=== PATIENT | female | born 1945 | race Caucasian/White ===

== ENCOUNTER → 2023-07-09 11:19 | Outpatient (REF) | payer MEDICARE, OTHER, SELFPAY ==
[2023-07-09 11:44] LABS: Hematocrit 29.2 % (37.0-47.0); Hemoglobin 7.9 g/dL (12.0-16.0); Mean Corp Hgb Conc. 27.1 g/dL (33.0-37.0); Mean Corpuscular Hgb 17.2 pg (27.0-31.0); Mean Corpuscular Volume 63.5 fL (81.0-99.0); Mean Platelet Volume 10.2 fL (7.4-10.4); Platelet Count 391 10^3/uL (130-400); Red Cell Dist. Width 20.9 % (11.5-14.5); White Blood Cell Count 10.3 10^3/uL (4.8-10.8)
== END ==
LOC: OLABN 11:19
PROVIDERS: ATTENDING PHYSICIAN Student in an Organized Health Care Education/Training Program
DX: D64.9 Anemia, unspecified (principal)
CPT/HCPCS: 36415; 85027

== ENCOUNTER → 2023-07-29 11:51 | Outpatient (REF) | payer MEDICARE, OTHER, SELFPAY ==
[2023-07-29 13:17] LABS: Hematocrit 31.5 % (37.0-47.0); Hemoglobin 8.8 g/dL (12.0-16.0); Mean Corp Hgb Conc. 27.9 g/dL (33.0-37.0); Mean Corpuscular Hgb 17.7 pg (27.0-31.0); Mean Corpuscular Volume 63.4 fL (81.0-99.0); Red Blood Cell Count 4.97 10^6/uL (4.20-5.40); Red Cell Dist. Width 23.9 % (11.5-14.5); White Blood Cell Count 8.8 10^3/uL (4.8-10.8)
[2023-07-29 14:12] LABS: Iron 43 ug/dl (37-170)
[2023-07-29 14:48] LABS: Ferritin 10.5 ng/ml (11.1-264.0)
[2023-07-29 15:03] LABS: Vitamin B12 707 pg/ml (239-931)
== END ==
LOC: OLABN 11:51
PROVIDERS: ATTENDING PHYSICIAN Student in an Organized Health Care Education/Training Program
DX: D64.9 Anemia, unspecified (principal); D51.9 Vitamin B12 deficiency anemia, unspecified
CPT/HCPCS: 36415; 82607; 82728; 83540; 85027

== ENCOUNTER → 2023-08-28 12:00 | Outpatient (REF) | payer MEDICARE, OTHER, SELFPAY ==
[2023-08-28 12:36] LABS: Hematocrit 32.3 % (37.0-47.0); Mean Corp Hgb Conc. 27.9 g/dL (33.0-37.0); Mean Corpuscular Hgb 20.4 pg (27.0-31.0); Mean Corpuscular Volume 73.2 fL (81.0-99.0); Mean Platelet Volume 10.5 fL (7.4-10.4); Platelet Count 406 10^3/uL (130-400); Red Blood Cell Count 4.41 10^6/uL (4.20-5.40); Red Cell Dist. Width 25.1 % (11.5-14.5)
== END ==
LOC: OLABN 12:00
PROVIDERS: ATTENDING PHYSICIAN Student in an Organized Health Care Education/Training Program
DX: D64.9 Anemia, unspecified (principal)
CPT/HCPCS: 36415; 85027

== ENCOUNTER → 2023-12-31 11:06 | Outpatient (REF) | payer MEDICARE, OTHER, SELFPAY ==
[2023-12-31 13:38] LABS: Hemoglobin 12.1 g/dL (12.0-16.0); Mean Corp Hgb Conc. 30.3 g/dL (33.0-37.0); Mean Corpuscular Hgb 22.7 pg (27.0-31.0); Mean Platelet Volume 11.2 fL (7.4-10.4); Platelet Count 269 10^3/uL (130-400); Red Blood Cell Count 5.33 10^6/uL (4.20-5.40); Red Cell Dist. Width 16.7 % (11.5-14.5)
[2023-12-31 13:51] LABS: Blood Urea Nitrogen 25 mg/dl (7-17); Calcium 10.4 mg/dl (8.4-10.2); Carbon Dioxide 27 mmol/L (22-30); Chloride 102 mmol/L (98-107); Glucose 91 mg/dl (70-99); Potassium 4.5 mmol/L (3.5-5.1); Sodium 139 mmol/L (135-145); eGFR > 60.00
== END ==
LOC: OLABN 11:06
PROVIDERS: ATTENDING PHYSICIAN Student in an Organized Health Care Education/Training Program
DX: Z85.3 Personal history of malignant neoplasm of breast (principal)
CPT/HCPCS: 36415; 80048; 85027

== ENCOUNTER → 2024-08-10 12:44 | Outpatient (REF) | payer MEDICARE, OTHER, SELFPAY ==
[2024-08-10 13:21] LABS: % Basophils 0.8 % (0-2); % Eosinophils 2.5 % (0-6); % Immature Granulocytes 0.4 % (0-0.5); % Lymphocytes 26.1 % (20.5-51.1); % Monocytes 7.9 % (1.7-9.3); % Neutrophils 62.3 % (42.2-75.2); Absolute Basophils 0.1 10^3/uL (0-0.2); Absolute Eosinophils 0.2 10^3/uL (0-0.7); Absolute Lymphocytes 1.9 10^3/uL (1.2-3.4); Absolute Monocytes 0.6 10^3/uL (0.1-0.6); Absolute Neutrophils 4.6 10^3/uL (1.4-6.5); Hematocrit 39.8 % (37.0-47.0); Hemoglobin 10.9 g/dL (12.0-16.0); Mean Corp Hgb Conc. 27.4 g/dL (33.0-37.0); Mean Corpuscular Hgb 20.2 pg (27.0-31.0); Mean Corpuscular Volume 73.7 fL (81.0-99.0); Nucleated Red Blood Cells % 0 %; Platelet Count 300 10^3/uL (130-400); Red Cell Dist. Width 23.5 % (11.5-14.5); White Blood Cell Count 7.3 10^3/uL (4.8-10.8)
[2024-08-10 13:45] LABS: Iron 31 ug/dl (37-170)
[2024-08-10 13:55] LABS: Percent Saturation 7 % (20-50); Total Iron Binding Capacity 389 ug/dl (265-497)
[2024-08-10 14:35] LABS: Anisocytosis 1+; Hypochromasia 1+; Normal RBC Morphology No; Ovalocytes 1+; Polychromasia 1+
[2024-08-10 14:36] LABS: Acanthocytes FEW
== END ==
LOC: OLABN 12:44
PROVIDERS: ATTENDING PHYSICIAN Student in an Organized Health Care Education/Training Program
DX: D50.9 Iron deficiency anemia, unspecified (principal)
CPT/HCPCS: 36415; 83540; 83550; 85025

== ENCOUNTER → 2024-12-29 11:51 | Outpatient (REF) | payer MEDICARE, OTHER, SELFPAY ==
[2024-12-29 14:23] LABS: Blood Urea Nitrogen 21 mg/dl (7-17); Calcium 9.1 mg/dl (8.4-10.2); Carbon Dioxide 27 mmol/L (22-30); Chloride 104 mmol/L (98-107); Glucose 98 mg/dl (70-99); Potassium 4.6 mmol/L (3.5-5.1); Sodium 137 mmol/L (135-145); eGFR > 60.00
== END ==
LOC: OLABN 11:51
PROVIDERS: ATTENDING PHYSICIAN Student in an Organized Health Care Education/Training Program
DX: Z85.3 Personal history of malignant neoplasm of breast (principal)
CPT/HCPCS: 36415; 80048

== ENCOUNTER → 2025-02-08 11:41 | Outpatient (REF) | payer MEDICARE, OTHER, SELFPAY ==
[2025-02-08 13:20] LABS: Hematocrit 27.3 % (37.0-47.0); Hemoglobin 7.2 g/dL (12.0-16.0); Mean Corp Hgb Conc. 26.4 g/dL (33.0-37.0); Mean Corpuscular Volume 63.5 fL (81.0-99.0); Nucleated Red Blood Cells % 0 %; Platelet Count 418 10^3/uL (130-400); Red Cell Dist. Width 18.3 % (11.5-14.5)
[2025-02-08 13:21] LABS: Total Iron Binding Capacity 465 ug/dl (265-497)
[2025-02-08 13:24] LABS: Iron < 20 ug/dl (37-170)
== END ==
LOC: OLABN 11:41
PROVIDERS: ATTENDING PHYSICIAN Student in an Organized Health Care Education/Training Program
DX: D50.9 Iron deficiency anemia, unspecified (principal)
CPT/HCPCS: 83540; 83550; 85025

== ENCOUNTER → 2025-02-09 09:47 | Outpatient (REF) | payer MEDICARE, OTHER, SELFPAY ==
[2025-02-09 10:51] LABS: Hematocrit 27.3 % (37.0-47.0); Hemoglobin 7.3 g/dL (12.0-16.0); Mean Corp Hgb Conc. 26.7 g/dL (33.0-37.0); Mean Corpuscular Volume 63.0 fL (81.0-99.0); Nucleated Red Blood Cells % 0 %; Platelet Count 440 10^3/uL (130-400); Red Cell Dist. Width 18.3 % (11.5-14.5)
[2025-02-09 15:02] LABS: Normal RBC Morphology No
[2025-02-09 15:03] LABS: Hypochromasia 2+; Microcytosis 2+; Ovalocytes 2+; Stomatocytes 1+; Target Cells 1+
== END ==
LOC: OLABN 09:47
PROVIDERS: ATTENDING PHYSICIAN Student in an Organized Health Care Education/Training Program
DX: D50.9 Iron deficiency anemia, unspecified (principal)
CPT/HCPCS: 36415; 85025

== ENCOUNTER → 2025-02-25 21:45 | Outpatient (REF) | payer MEDICARE, OTHER, SELFPAY | LOC: OLABN 21:45 | PROVIDERS: ATTENDING PHYSICIAN Student in an Organized Health Care Education/Training Program | DX: D50.9 Iron deficiency anemia, unspecified (principal) | CPT/HCPCS: 82272 ==

== ENCOUNTER → 2025-04-12 13:43 | Outpatient (REF) | payer MEDICARE, OTHER, SELFPAY | LOC: WDC 13:43 | PROVIDERS: ATTENDING PHYSICIAN Student in an Organized Health Care Education/Training Program | DX: Z12.31 Encounter for screening mammogram for malignant neoplasm of breast (principal) | CPT/HCPCS: 77063; 77067 ==

== ENCOUNTER → 2025-04-26 10:13 | Outpatient (REF) | payer MEDICARE, OTHER, SELFPAY ==
[2025-04-26 12:38] LABS: Hematocrit 41.9 % (37.0-47.0); Hemoglobin 12.5 g/dL (12.0-16.0); Mean Corp Hgb Conc. 29.8 g/dL (33.0-37.0); Mean Corpuscular Volume 77.3 fL (81.0-99.0); Nucleated Red Blood Cells % 0 %; Platelet Count 242 10^3/uL (130-400); Red Cell Dist. Width 26.6 % (11.5-14.5)
[2025-04-26 12:55] LABS: Iron 55 ug/dl (37-170)
[2025-04-26 13:04] LABS: Total Iron Binding Capacity 295 ug/dl (265-497)
[2025-04-26 13:27] LABS: Ferritin 58.3 ng/ml (11.1-264.0)
== END ==
LOC: OLABN 10:13
PROVIDERS: ATTENDING PHYSICIAN Student in an Organized Health Care Education/Training Program
DX: D50.9 Iron deficiency anemia, unspecified (principal)
CPT/HCPCS: 36415; 82728; 83540; 83550; 85025

== ENCOUNTER → 2025-05-24 11:12 | Outpatient (REF) | payer MEDICARE, OTHER, SELFPAY ==
[2025-05-24 12:00] LABS: Iron 46 ug/dl (37-170)
[2025-05-24 12:02] LABS: Hematocrit 42.7 % (37.0-47.0); Hemoglobin 13.2 g/dL (12.0-16.0); Mean Corp Hgb Conc. 30.9 g/dL (33.0-37.0); Mean Corpuscular Volume 78.6 fL (81.0-99.0); Nucleated Red Blood Cells % 0 %; Platelet Count 259 10^3/uL (130-400); Red Cell Dist. Width 22.0 % (11.5-14.5)
[2025-05-24 12:10] LABS: Total Iron Binding Capacity 312 ug/dl (265-497)
[2025-05-24 12:36] LABS: Ferritin 46.0 ng/ml (11.1-264.0)
== END ==
LOC: OLABN 11:12
PROVIDERS: ATTENDING PHYSICIAN Student in an Organized Health Care Education/Training Program
DX: D50.9 Iron deficiency anemia, unspecified (principal)
CPT/HCPCS: 36415; 82728; 83540; 83550; 85025